=== PATIENT | male | born 1935 | race Caucasian/White ===

== ENCOUNTER 2017-10-02 09:56 | Day surgery (SDC) | payer MEDICARE, OTHER, SELFPAY ==
[2017-10-02 10:15] VITALS: BP 141/83; PULSE 96; RESP 14; TEMP 36.1; O2SAT 95; BMI 31.4
[2017-10-02] MEDS: SODIUM CHLORIDE 0.9% 1,000 ML 200 ML IV (10:30)
--- NOTE | 2017-10-02 10:54 | PM.HP.1 ---
History of Present Illness Date Patient Seen: 10/02/17 Time Patient Seen: 10:54 Chief complaint: colonoscopy [id number] Narrative: The patient is gentleman who has had polyps removed in the past. His last colonoscopy was 5 years ago. He is here for screening exam due to that history. No family history colon cancer Patient History Medical History Bruises easily (Acute) Dental anomaly (Acute) Hypertension (Acute) Urinary retention (Acute) History of pulmonary embolism (Resolved) Surgical History History of hip replacement (Resolved) Family & Social History Family History: Reviewed 10/02/17 by Juan Dorado MD Social History: household members spouse Has not smoked. Occasionally uses alcohol. Meds Home Medications Medication Instructions Recorded Confirmed Type aspirin 81 mg PO DAILY 10/02/17 10/02/17 History finasteride 5 mg PO DAILY 10/02/17 10/02/17 History hydrochlorothiazide 12.5 mg PO DAILY 10/02/17 10/02/17 History lisinopril 20 mg PO DAILY 10/02/17 10/02/17 History tamsulosin [Flomax] 0.4 mg PO BID 10/02/17 10/02/17 History Allergies Allergy/AdvReac Type Severity Reaction Status Date / Time hay fever Allergy Mild Itching Uncoded 10/02/17 10:30 eyes, runny nose Review of Systems Review of Systems All systems reviewed & are unremarkable except as noted in HPI and below Genitourinary Comments: Takes medication for urinary tract obstructive symptoms Exam Vital Signs (past 8 hours): - 10/02/17 10:15 Temperature 97.0 F L Pulse Rate 96 H Respiratory Rate 14 Blood Pressure 141/83 H Pulse Oximetry 95 Oxygen Delivery Method Room Air Narrative Exam Narrative: Operative gentleman no apparent distress. His eyes are nonicteric. Lungs are clear to auscultation. Heart regular rate and rhythm without murmur gallop. Abdomen is soft nontender without mass. He is alert and oriented x3. Speech rate and content are appropriate. Assessment & Plan (1) History of colon polyps: Current visit: Yes Status: Chronic Plan: Assessment/Plan Narrative: Plan to perform colonoscopy. I have discussed the procedure and the rationale with the patient including risks of bleeding, perforation which would necessitate a major operation, failure to find remove all lesions and the potential to tattoo. They appeared to understand and wished to proceed.
--- NOTE | 2017-10-02 11:02 | PM.PREOP ---
Pre-operative Note Interval Note Pre-op Check: Yes History & Physical exam performed today by Physician Changes: No ASA Class (for procedural sedation): III
[2017-10-02] MEDS: MIDAZOLAM 5 MG/5 ML VIAL IV (11:30)
[2017-10-02] MEDS: fentaNYL 250 MCG/5 ML INJ IV (11:30)
--- NOTE | 2017-10-02 11:35 | PM.OP.ENDO ---
Operative Date/Time/Diagnoses Date of procedure: 10/02/17 Time of procedure: 11:35 Pre-op diagnosis: History of polyps. Screening exam. Last colonoscopy 5 years ago. Post-op diagnosis: same (Xie colonic diverticulosis with heaviest concentration in the sigmoid colon) Procedure & Clinicians Study performed: Colonoscopy Same procedure as scheduled: Yes Indications: Screening examination Surgeon: Juan Dorado Procedure Notes SCOAP/Timeout: Performed Procedure in detail: The patient was placed in the left lateral decubitus position and underwent IV sedation directed by the surgeon consisting of fentanyl and Versed. Digital exam was remarkable for moderately enlarged prostate without dominant mass. The scope was inserted and advanced through the rectum into the sigmoid, descending, transverse, and ascending colon.[Patient had pandiverticulosis. The heaviest concentration was in the sigmoid colon.]. The cecum was reached identified by the ileocecal valve and the appendiceal opening. The scope was gradually brought out. No Polyps were found. The scope ultimately was retroflexed in the rectum. The appearance was[normal in appearance]. The scope was removed and the patient tolerated the procedure well Scope withdrawal time: 6 min Sedation minutes: 27 Findings: diverticulosis (Xie colonic) Specimen(s): none sent Complications: none Recommendations: Colonscopy in 5 years (If you are in good health) Follow up: as needed Disposition: same day surgery
--- NOTE | 2017-10-02 11:39 | P.OP.ENDO_ITS ---
Operative Date/Time/Diagnoses Date of procedure: 10/02/17 Time of procedure: 11:35 Pre-op diagnosis: History of polyps. Screening exam. Last colonoscopy 5 years ago. Post-op diagnosis: same (Xie colonic diverticulosis with heaviest concentration in the sigmoid colon) Procedure & Clinicians Study performed: Colonoscopy Same procedure as scheduled: Yes Indications: Screening examination Surgeon: Juan Dorado Procedure Notes SCOAP/Timeout: Performed Procedure in detail: The patient was placed in the left lateral decubitus position and underwent IV sedation directed by the surgeon consisting of fentanyl and Versed. Digital exam was remarkable for moderately enlarged prostate without dominant mass. The scope was inserted and advanced through the rectum into the sigmoid, descending, transverse, and ascending colon.[ Patient had pandiverticulosis. The heaviest concentration was in the sigmoid colon.]. The cecum was reached identified by the ileocecal valve and the appendiceal opening. The scope was gradually brought out. No Polyps were found. The scope ultimately was retroflexed in the rectum. The appearance was[ normal in appearance]. The scope was removed and the patient tolerated the procedure well Scope withdrawal time: 6 min Sedation minutes: 27 Findings: diverticulosis (Xie colonic) Specimen(s): none sent Complications: none Recommendations: Colonscopy in 5 years (If you are in good health) Follow up: as needed Disposition: same day surgery
[2017-10-02 11:42] VITALS: BP 109/75; PULSE 81; RESP 14; TEMP 37.1; O2SAT 95
--- NOTE | 2017-10-02 11:57 | SUR.PHASEII ---
1141 alert/oriented. Denies pain. food/fluids given. 1152 tolerating PO well; more snack/fluids given. Would like to rest another 5+ minutes before preparing for discharge. Stable.
[2017-10-02 12:06] VITALS: BP 104/60; PULSE 80; RESP 14; O2SAT 95
== END 2017-10-02 12:18 | disposition home or self-care (01) ==
PROVIDERS: PCP Physician Assistant Medical; Visit Provider Specialist
PROC: 0DJD8ZZ Inspection of Lower Intestinal Tract, Via Natural or Artificial Opening Endoscopic (ICD-10-PCS; CPT 45378; principal; 2017-10-02 10:45)
DX: Z86.010 Personal history of colon polyps (principal); K57.30 Diverticulosis of large intestine without perforation or abscess without bleeding; I10 Essential (primary) hypertension
CPT/HCPCS: G0105; 99152; 99153; J2250; J3010

== ENCOUNTER → 2018-04-05 19:35 | Outpatient (REF) | payer MEDICARE, OTHER, SELFPAY ==
[2018-04-05 20:25] LABS: Prostate Specific Antigen 0.716 ng/mL (0.10-4.00)
== END ==
LOC: LAB 19:35
PROVIDERS: PCP Physician Assistant Medical; Visit Provider Family Medicine Geriatric Medicine
DX: N40.1 Benign prostatic hyperplasia with lower urinary tract symptoms (principal)
CPT/HCPCS: 36415; 84153

== ENCOUNTER 2020-09-30 13:23 | Emergency (ER) | payer MEDICARE, OTHER, SELFPAY ==
[2020-09-30 13:33] VITALS: BP 146/69; PULSE 109; RESP 15; TEMP 36.4; O2SAT 98; BMI 30.4
--- NOTE | 2020-09-30 13:47 | ED_ITS ---
HPI - Extremity Problem <Alex Quiroz PA-C - Last Filed: 09/30/20 19:05> General Chief complaint: Extremity Problem,Nontraumatic Stated complaint: gout in right knee Time Seen by Provider: 09/30/20 13:33 Source: patient Mode of arrival: Ambulatory Limitations: no limitations History of Present Illness HPI Narrative: Fabian presents today with chief complaint of right knee pain and swelling that started 2 days ago. 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 He usually takes allopurinol daily and has a prescription of prednisone that he takes when he has flare ups. However, he does not have his medications with him at this time. Pain is made worse with bending his knee. He is still able to walk on it okay. He denies any fever, difficulty walking, injury or any other acute concerns or complaints. Related Data Home Medications Medication Instructions Recorded Confirmed aspirin 81 mg tablet,delayed 81 mg PO DAILY 10/02/17 10/02/17 release finasteride 5 mg tablet 5 mg PO DAILY 10/02/17 10/02/17 hydrochlorothiazide 12.5 mg capsule 12.5 mg PO DAILY 10/02/17 10/02/17 lisinopril 20 mg tablet 20 mg PO DAILY 10/02/17 10/02/17 tamsulosin 0.4 mg capsule (Flomax) 0.4 mg PO BID 10/02/17 10/02/17 Previous Rx's Medication Instructions Recorded prednisone 20 mg tablet 20 mg PO DAILY 5 Days #5 tab 09/30/20 Allergies Allergy/AdvReac Type Severity Reaction Status Date / Time No Known Drug Allergies Allergy Verified 09/30/20 13:33 Review of Systems <Alex Quiroz PA-C - Last Filed: 09/30/20 19:05> Review of Systems Narrative: As per HPI Patient History <Alex Quiroz PA-C - Last Filed: 09/30/20 19:05> Medical History (Updated 09/30/20 @ 13:53 by Alex Quiroz PA-C) Bruises easily Dental anomaly History of pulmonary embolism Hypertension Urinary retention Surgical History (Updated 10/02/17 @ 10:57 by Juan Dorado MD) History of hip replacement Social History household members: spouse Smoking Status: Unknown if ever smoked Smoking Status: Unknown if ever smoked alcohol intake frequency: holidays/special occasions only Substance Use Type: does not use Exam <Alex Quiroz PA-C - Last Filed: 09/30/20 19:05> Narrative Exam Narrative: Initial Vital Signs Initial Vital Signs: Vital Signs Temperature 97.6 F 09/30/20 13:33 Pulse Rate 109 H 09/30/20 13:33 Respiratory Rate 15 09/30/20 13:33 Blood Pressure 146/69 H 09/30/20 13:33 Pulse Oximetry 98 09/30/20 13:33 Const General: cooperative, healthy appearing and comfortable Resp Effort & Inspection: normal respiratory effort Neuro General: patient alert, patient oriented x3 and gait normal Extrem Right lower extremity: knee Details: tenderness and swelling; Negative for no ecchymosis and no unusual warmth Left lower extremity: normal to inspection Psych Appearance: grossly normal Mental Status: mental status grossly normal <Owen Watson DO - Last Filed: 09/30/20 19:07> Initial Vital Signs Initial Vital Signs: Vital Signs Temperature 97.6 F 09/30/20 13:33 Pulse Rate 109 H 09/30/20 13:33 Respiratory Rate 15 09/30/20 13:33 Blood Pressure 146/69 H 09/30/20 13:33 Pulse Oximetry 98 09/30/20 13:33 Course <Alex Quiroz PA-C - Last Filed: 09/30/20 19:05> Vital Signs Vital signs: Vital Signs - 8 hr 09/30/20 13:33 09/30/20 14:05 Temperature 97.6 F Pulse Rate 109 H 97 H Respiratory Rate 15 18 Blood Pressure 146/69 H 118/57 L Pulse Oximetry 98 95 <Owen Watson DO - Last Filed: 09/30/20 19:07> Vital Signs Vital signs: Vital Signs - 8 hr 09/30/20 13:33 09/30/20 14:05 Temperature 97.6 F Pulse Rate 109 H 97 H Respiratory Rate 15 18 Blood Pressure 146/69 H 118/57 L Pulse Oximetry 98 95 MDM - Extremity (Nontraumatic) <POP Shaw Last Filed: 09/30/20 19:05> MDM Narrative Medical decision making narrative: Patient is well-appearing at this time with no systemic signs of illness. He has long history of frequent gouty attacks in his right knee and reports that his symptoms are the same as his previous episodes. He has some active range of motion. Differential considered include septic arthritis, cellulitis, septic bursitis. We will treat for gout at this time with strict ER return precautions if symptoms fail to improve with regular therapy. Patient verbalizes understanding and agrees to plan and has no further concerns at this time. Thank you A [id number] system was used with the dictation of this note. Please disregard any spelling or grammatical errors. Discharge Plan Departure Patient Disposition: Home Clinical Impression: Gout Qualifiers: Gout site: knee Gout etiology: unspecified cause Chronicity: acute Laterality: right Qualified Code(s): M10.9 - Gout, unspecified Activity Restrictions/Additional Instructions: It was very nice to meet you this afternoon. Please use the steroid to treat your gouty flare. If you experience fever, continued pain, spreading redness, or have any additional concerns or complaints do not hesitate to return for re- evaluation. Thank you Alex Quiroz PAC Prescriptions: New prednisone 20 mg tablet 20 mg PO DAILY 5 Days Qty: 5 RF: 0 No Action lisinopril 20 mg Tablet 20 mg PO DAILY RF: 0 aspirin 81 mg Tablet,Delayed Release (Dr/Ec) 81 mg PO DAILY RF: 0 tamsulosin [Flomax] 0.4 mg Capsule 0.4 mg PO BID RF: 0 hydrochlorothiazide 12.5 mg Capsule 12.5 mg PO DAILY RF: 0 finasteride 5 mg Tablet 5 mg PO DAILY RF: 0 Referrals: Martine Pollard PA-C [Primary Care Provider] - <Owen Watson DO - Last Filed: 09/30/20 19:07> Cosign ED Attending Cosignature Attestation: Dr Watson Co-Sign Statement: I was available for consultation during this patient's emergency department visit. This chart is signed by myself for administrative purposes only. I did not have direct contact with this patient during this visit. They were seen independently by the APC.
[2020-09-30 14:05] VITALS: BP 118/57; PULSE 97; RESP 18; O2SAT 95
== END 2020-09-30 14:07 | disposition home or self-care (01) ==
PROVIDERS: Emergency Provider Physician Assistant; PCP Physician Assistant Medical
DX: M10.9 Gout, unspecified (principal)
CPT/HCPCS: 99281